=== PATIENT | female | born 1930 | race Caucasian/White ===

== ENCOUNTER 2017-07-31 13:59 | Inpatient (IN) | payer MEDICARE ==
[~2017-07-31] VITALS: Ht 172.7 cm; Wt 77.1 kg
--- NOTE | 2017-07-31 13:59 | NUR ---
FROM [facility] SENT BY DR TRAN FOR EVALUATION OF POSSIBLE UTI
--- NOTE | 2017-07-31 14:20 | NUR ---
DR ZARAGOZA AT BEDSIDE FOR EVAL
[2017-07-31 14:49] LABS: BASOPHILS # (AUTO) 0.7 /CMM (0.0-0.2); BASOPHILS % (AUTO) 4.7 % (0.0-2.0); EOSINOPHILS # (AUTO) 0.2 /CMM (0.0-0.7); EOSINOPHILS % (AUTO) 1.7 % (0.0-6.0); HEMATOCRIT 39 % (33-45); HEMOGLOBIN 12.7 g/dL (11.5-14.8); LYMPHOCYTES # (AUTO) 1.8 /CMM (0.8-4.8); LYMPHOCYTES % (AUTO) 12.8 % (20.0-44.0); MEAN CORPUSCULAR HEMOGLOBIN 31 PG (26.0-33.0); MEAN CORPUSCULAR HGB CONC 32 g/dl (31.0-36.0); MEAN CORPUSCULAR VOLUME 96 fL (82-100); MONOCYTES # (AUTO) 1.3 /CMM (0.1-1.30); MONOCYTES % (AUTO) 8.9 % (2.0-12.0); NEUTROPHILS # (AUTO) 10.4 /CMM (1.8-8.9); NEUTROPHILS % (AUTO) 71.9 % (43.0-81.0); PLATELET COUNT (AUTO) 482 /CMM (150-450); RDW COEFFICIENT OF VARIATION 15.8 (11.5-15.0); RED BLOOD CELL COUNT(AUTO) 4.09 MIL/uL (4.0-5.2); WHITE BLOOD COUNT (AUTO) 14.4 K/uL (4.3-11.0)
--- NOTE | 2017-07-31 14:56 | NUR ---
[facility] RN AT BEDSIDE FOR EVAL
[2017-07-31 14:59] LABS: APPEARANCE,URINE Cloudy (CLEAR); BILIRUBIN,URINE Negative (NEGATIVE); BLOOD, URINE Moderate Ery/uL (NEGATIVE); COLOR,URINE Yellow (YELLOW); KETONES,URINE Negative (NEGATIVE); LEUKOCYTE ESTERASE ,URINE Large (NEGATIVE); NITRITE, URINE Negative (NEGATIVE); PH,URINE 5.5 (5.0-8.0); PROTEIN,URINE >=300 mg/dl (NEGATIVE); UGLUCOSE 500 MG/DL mg/dL (NEGATIVE); UROBILINOGEN,URINE 0.2 EU/dL (0.2)
[2017-07-31 14:59] LABS: CALCIUM, SERUM 8.4 mg/dL (8.5-10.1); CARBON DIOXIDE 22 mmol/L (21-32); CHLORIDE 105 mmol/L (98-107); CREATININE 1.7 mg/dL (0.6-1.3); GLUCOSE 333 mg/dL (74-106); POTASSIUM 4.3 mmol/L (3.5-5.1); SODIUM SERUM 138 mmol/L (136-145); UREA NITROGEN, BLOOD 35 mg/dL (7-18)
--- NOTE | 2017-07-31 15:00 | NUR ---
URINE SAMPLE COLLECTED SENT TO LAB
[2017-07-31 15:03] LABS: BACTERIA,URINE 2+ /HPF (None Seen); SQUAMOUS EPITHELIAL CELL,UR Moderate /HPF (None Seen); URINE AMORPHOUS URATE Moderate /HPF (None Seen); WBC,URINE 21-50 /HPF (0-3)
[2017-07-31 15:04] LABS: ALANINE AMINOTRANSFERASE 22 U/L (12-78); ALBUMIN 2.8 g/dL (3.4-5.0); ALKALINE PHOSPHATASE 129 U/L (46-116); ASPARTATE AMINOTRANSFERASE 12 U/L (15-37); BILIRUBIN,DIRECT 0.1 mg/dL (0.0-0.2); BILIRUBIN,TOTAL 0.3 mg/dL (0.2-1.0); LIPASE 242 U/L (73-393); TOTAL PROTEIN, SERUM 8.4 g/dL (6.4-8.2)
[2017-07-31 15:10] LABS: INR 1.17 (0.87-1.13); PROTHROMBIN TIME 12.3 SECS (9.5-12.7)
--- NOTE | 2017-07-31 17:03 | NUR ---
GAVE REPORT TO VICKIE BARON [facility] 205 DR TRAN ADMITTING UTI DX
[2017-07-31] MEDS ORDERED: LEVO150T8 PO (17:04)
[2017-07-31] MEDS ORDERED: CETI-232 PO (17:04)
[2017-07-31] MEDS ORDERED: MEGE400O PO (17:04)
[2017-07-31] MEDS ORDERED: METO50TA3 PO (17:04)
[2017-07-31] MEDS ORDERED: MONT10TA22 PO (17:04)
[2017-07-31] MEDS ORDERED: NATE120T6 PO (17:04)
[2017-07-31] MEDS ORDERED: GLIP10TA11 PO (17:04)
[2017-07-31] MEDS ORDERED: FAMO20TA8 PO (17:04)
[2017-07-31] MEDS ORDERED: DILT120C2 PO (17:04)
[2017-07-31] MEDS ORDERED: ATOR20TA PO (17:04)
[2017-07-31] MEDS ORDERED: GABA-534 PO (17:04)
[2017-07-31] MEDS ORDERED: DOCU100T2 PO (17:04)
[2017-07-31] MEDS ORDERED: DABI75CA3 PO (17:04)
[2017-07-31] MEDS ORDERED: FERR-58 PO (17:04)
[2017-07-31] MEDS ORDERED: MULT-213 PO (17:04)
[2017-07-31] MEDS ORDERED: FOLI1TAB16 PO (17:04)
[2017-07-31] MEDS ORDERED: GLIP5TAB13 PO (17:04)
[2017-07-31] MEDS ORDERED: ALPR0.255 PO (17:04)
[2017-07-31] MEDS ORDERED: SERT50TA PO (17:04)
[2017-07-31] MEDS ORDERED: DIAZ5TAB4 PO (17:04)
--- NOTE | 2017-07-31 17:50 | NUR ---
RN NOTES RECEIVED PT FROM ER. PT IS IN BED, AWAKE, RESTING COMFORTABLY. PT ON RA, RESPIRATIONS ARE EVEN AND UNLABORED. IV ON RAC, INTACT AND PATENT, RUNNING NS @ 75ML/HR. SAFETY MEASURES ARE IN PLACE, CALL LIGHT IS IN REACH. WILL CONTINUE TO MONITOR.
[2017-07-31 17:55] VITALS: BP 99/67
[2017-07-31 18:45] VITALS: BP 99/67
--- NOTE | 2017-07-31 19:08 | NUR ---
RN NOTES PT IS IN BED, EATING DINNER. ON RA, RESPIRATIONS ARE EVEN AND UNLABORED. WOUND PICTURES TAKEN. IV FLUIDS RUNNING FROM IV ON RAC. SAFETY MEASURES ARE IN PLACE, CALL LIGHT IS IN REACH. WILL ENDORSE TO POLISHING MACHINE OPERATOR HELPER RN FOR CONTINUITY OF CARE.
--- NOTE | 2017-07-31 19:30 | NUR ---
MS RN NOTES RECEIVED ON BED A/O X1-2,WITH EPISODE OF CONFUSION,BREATHING REGULAR,NOT IN ANY FORM OF DISTRESS.PRESENT IVF INFUSING WELL ON RIGHT AC AT 75ML/HR RATE VIA IV PUMP,SITE PATENT.FALL RISK PRECAUTION OBSERVED,BED ON LOWEST POSITION AND LOCKED.CALL LIGHT IN REACH,NEEDS ANTICIPATED.
[2017-07-31 20:00] VITALS: BP 119/79
[2017-07-31 20:07] VITALS: BP 119/79
--- NOTE | 2017-07-31 22:00 | NUR ---
MS RN NOTES ACCU-CHECK BLOOD SUGAR CHECK 246,COVERED WITH HUMULIN R 4 UNITS PER SLIDING SCALE.
--- NOTE | 2017-07-31 22:00 | NUR ---
MS RN NOTES DUE VALIUM 5MG HELD.PATIENT CALM AND QUIET.
--- NOTE | 2017-07-31 23:15 | NUR ---
MS RN NOTES IV SITE RIGHT AC INFILTRATED.NEW IV ACCESS PLACE ON RIGHT FOREARM#22,SAME IVF INFUSING AT THIS TIME.
--- NOTE | 2017-07-31 23:30 | NUR ---
MS RN NOTES PATIENT TRANSFERRED TO ISO FLEX BED FOR SKIN CARE MANAGEMENT
--- NOTE | 2017-08-01 | NUR ---
MS RN NOTES DUE ZOSYN 2.25GM IVPB HUNG
--- NOTE | 2017-08-01 05:30 | NUR ---
MS RN NOTES ACCU-CHECK BLOOD SUGAR CHECK 118,NO INSULIN COVERAGE.
--- NOTE | 2017-08-01 06:12 | NUR ---
MS RN NOTES NO SIGNIFICANT CHANGE IN STATUS.SLEPT WELL.IV ABX TOLERATED WELL.IVF IN PROGRESS,IN NO ACUTE DISTRESS.WILL ENDORSE TO DAY NURSE FOR PEDRO LUIS
[2017-08-01 06:42] LABS: BASOPHILS % (AUTO) 0.4 % (0.0-2.0); EOSINOPHILS # (AUTO) 0.2 /CMM (0.0-0.7); HEMATOCRIT 38 % (33-45); HEMOGLOBIN 12.4 g/dL (11.5-14.8); LYMPHOCYTES % (AUTO) 19.7 % (20.0-44.0); MEAN CORPUSCULAR HEMOGLOBIN 31 PG (26.0-33.0); MEAN CORPUSCULAR HGB CONC 33 g/dl (31.0-36.0); MEAN CORPUSCULAR VOLUME 96 fL (82-100); MONOCYTES # (AUTO) 0.9 /CMM (0.1-1.30); MONOCYTES % (AUTO) 8.2 % (2.0-12.0); NEUTROPHILS # (AUTO) 7.2 /CMM (1.8-8.9); NEUTROPHILS % (AUTO) 69.7 % (43.0-81.0); PLATELET COUNT (AUTO) 415 /CMM (150-450); RDW COEFFICIENT OF VARIATION 16.1 (11.5-15.0); RED BLOOD CELL COUNT(AUTO) 3.93 MIL/uL (4.0-5.2); WHITE BLOOD COUNT (AUTO) 10.4 K/uL (4.3-11.0)
[2017-08-01 06:51] LABS: CALCIUM, SERUM 8.4 mg/dL (8.5-10.1); CARBON DIOXIDE 20 mmol/L (21-32); CHLORIDE 112 mmol/L (98-107); CREATININE 1.5 mg/dL (0.6-1.3); GLUCOSE 133 mg/dL (74-106); MAGNESIUM 1.7 mg/dL (1.8-2.4); PHOSPHORUS 3.1 mg/dL (2.5-4.9); POTASSIUM 3.9 mmol/L (3.5-5.1); SODIUM SERUM 144 mmol/L (136-145); UREA NITROGEN, BLOOD 31 mg/dL (7-18)
--- NOTE | 2017-08-01 07:15 | NUR ---
RN NOTES PT IS IN BED, SLEEPING COMFORTABLY. PT ON RA, RESPIRATIONS ARE EVEN AND UNLABORED. IV ON RFA INTACT AND PATENT RUNNING NS @ 75 ML/HR. SAFETY MEASURES ARE IN PLACE, CALL LIGHT IS IN REACH. WILL CONTINUE TO MONITOR.
--- NOTE | 2017-08-01 08:00 | NUR ---
RN NOTES PT IS REFUSING TO HAVE VITAL SIGNS CHECKED. EXPLAINED TO THE PT THAT WE NEEDED TO CHECK HER BLOOD PRESSURE BECAUSE SHE HAS BP MEDICATIONS DUE. PT STATES SHE UNDERSTANDS AND STILL REFUSES.
--- NOTE | 2017-08-01 08:30 | NUR ---
WOUND CARE CONSULT: PT ADAMANTLY REFUSED SKIN ASSESSMENT. PHOTO DOCUMENTATION SHOWS SACRAL ULCER. PT ON NAA ISOFLEX LOW AIRLOSS BED. ALL SKIN PROTECTION MEASURES DISCUSSED WITH NURSING STAFF. WOUND CARE RECOMMENDATIONS MADE BASED ON PHOTO DOCUMENTATION. SURGICAL CONSULT MAY BE INDICATED. WILL SEE PT PT CONDITION PERMITS. MD IN AGREEMENT WITH PLAN OF CARE.
--- NOTE | 2017-08-01 12:32 | NUR ---
WOUND CARE CONSULT: PT ALLOWED SKIN ASSESSMENT. PT NOTED TO HAVE UNSTAGEABLE ULCER TO SACRUM, PRESENT ON ADMISSION. RECOMMENDATIONS FOR WOUND CARE DISCUSSED WITH NURSING STAFF. RECOMMEND SURGICAL CONSULT. PT ON NAA ISOFLEX LOW AIRLOSS BED. WILL SEE PRN. HILL IN AGREEMENT WITH PLAN OF CARE. Addendum: 08/01/17 at 1233 by KERVIN BRIGHT WNDNU Amended: Links added.
[2017-08-01 16:00] VITALS: BP 118/79
--- NOTE | 2017-08-01 19:08 | NUR ---
RN NOTES PT IS SITTING UP IN BED, RESTING COMFORTABLY. PT ON RA, RESPIRATIONS ARE EVEN AND UNLABORED. IV ON RIGHT WRIST INTACT AND PATENT, RUNNING NS @ 75ML/HR. SKIN CARE AND WOUND CARE WERE PROVIDED. PHYSICAL THERAPY SAW PT AND SHE WAS ABLE TO STAND. ALL NEEDS WERE MET. SAFETY MEASURES ARE IN PLACE, CALL LIGHT IS IN REACH. WILL ENDORSE TO PRINTING SUPERVISOR RN FOR CONTINUITY OF CARE.
[2017-08-01 20:00] VITALS: BP 119/71
[2017-08-02 06:27] LABS: BASOPHILS % (AUTO) 0.3 % (0.0-2.0); EOSINOPHILS # (AUTO) 0.3 /CMM (0.0-0.7); EOSINOPHILS % (AUTO) 2.3 % (0.0-6.0); HEMATOCRIT 34 % (33-45); HEMOGLOBIN 11.2 g/dL (11.5-14.8); LYMPHOCYTES # (AUTO) 2.5 /CMM (0.8-4.8); LYMPHOCYTES % (AUTO) 21.8 % (20.0-44.0); MEAN CORPUSCULAR HEMOGLOBIN 32 PG (26.0-33.0); MEAN CORPUSCULAR HGB CONC 33 g/dl (31.0-36.0); MEAN CORPUSCULAR VOLUME 96 fL (82-100); MONOCYTES # (AUTO) 0.9 /CMM (0.1-1.30); MONOCYTES % (AUTO) 7.8 % (2.0-12.0); NEUTROPHILS # (AUTO) 7.9 /CMM (1.8-8.9); NEUTROPHILS % (AUTO) 67.8 % (43.0-81.0); PLATELET COUNT (AUTO) 379 /CMM (150-450); RDW COEFFICIENT OF VARIATION 16.1 (11.5-15.0); RED BLOOD CELL COUNT(AUTO) 3.52 MIL/uL (4.0-5.2); WHITE BLOOD COUNT (AUTO) 11.7 K/uL (4.3-11.0)
--- NOTE | 2017-08-02 06:28 | NUR ---
MS RN NOTES AWAKE & RESPONSIVE. NOT IN ANY DISTRESS. NO SOB NOTED. DENIES ANY PAIN OR DISCOMFORT AT THIS TIME. WITH IVF INFUSING WELL. AM CARE DONE. MONITORED ACCORDINGLY. CALL LIGHT WITHIN REACH. BED IN LOWEST POSITION. SR UP X 3 WITH BED ALARM ON FOR SAFETY. WILL ENDORSE TO NEXT SHIFT.
[2017-08-02 06:39] LABS: CARBON DIOXIDE 19 mmol/L (21-32); CHLORIDE 113 mmol/L (98-107); CREATININE 1.4 mg/dL (0.6-1.3); GLUCOSE 142 mg/dL (74-106); MAGNESIUM 1.9 mg/dL (1.8-2.4); POTASSIUM 3.5 mmol/L (3.5-5.1); SODIUM SERUM 144 mmol/L (136-145); UREA NITROGEN, BLOOD 27 mg/dL (7-18)
--- NOTE | 2017-08-02 07:05 | NUR ---
RN NOTES REPORT RECEIVED AT THE BEDSIDE. PATIENT RESTING COMFORTABLY IN BED. NO SOB OR DISTRESS NOTED AT THIS TIME. PATIENT DENIES PAIN AT THIS TIME AND STATES "I AM HUNGRY." IV FLUIDS INFUSING WELL. BED IN A LOW POSITION, CALL LIGHT WITHIN PATIENT REACH, WILL CONTINUE TO MONITOR.
[2017-08-02 08:00] VITALS: BP 127/92
[2017-08-02 16:00] VITALS: BP 123/72
--- NOTE | 2017-08-02 18:58 | NUR ---
RN CLOSING NOTES NO SIGNIFICANT CHANGES IN PATIENT CONDITION THROUGHOUT THE SHIFT. NO SOB OR DISTRESS NOTED AT THIS TIME. PATIENT DENIES PAIN. BED IN A LOW POSITION, CALL LIGHT WITHIN PATIENT REACH, FAMILY AT THE BEDSIDE. WILL ENDORSE FOR PEDRO LUIS.
[2017-08-02 20:00] VITALS: BP 120/63
--- NOTE | 2017-08-03 06:48 | NUR ---
MS RN NOTES AWAKE & RESPONSIVE. NOT IN ANY DISTRESS. NO SOB NOTED. DENIES ANY PAIN OR DISCOMFORT AT THIS TIME. WITH IV-HL PATENT & INTACT. AM CARE DONE. MONITORED ACCORDINGLY. CALL LIGHT WITHIN REACH. BED IN LOWEST POSITION. SR UP X 3 WITH BED ALARM ON FOR SAFETY. WILL ENDORSE TO NEXT SHIFT.
--- NOTE | 2017-08-03 08:00 | NUR ---
MS RN OPENING NOTES PATIENT IS AWAKE. NOT IN ANY APPARENT DISTRESS. NO SOB. IV ON RIGHT FOREARM SALINE LOCK. BEDSIDE RAILS ARE UP X2. BED IS LOCKED AND LOWERED. WILL CONTINUE TO MONITOR.
[2017-08-03 16:00] VITALS: BP 110/60
--- NOTE | 2017-08-03 19:23 | NUR ---
MS RN CLOSING NOTES PATIENT IS RESTING IN BED IN NO APPARENT DISTRESS. BEDSIDE RAILS ARE UP X2. BED IS LOCKED AND LOWERED. WILL ENDORSE CARE TO DIRECTOR MERIT SYSTEM NURSE FOR PEDRO LUIS.
--- NOTE | 2017-08-03 19:30 | NUR ---
MSRN FULLY AWAKE,CONFUSED. COOPERATIVE. SAFETY PRECAUTIONARY MEASURES OBSERVED, NEEDS CONSTANT MONITORING. REPOSITIONED PER PATIENT COMFORT. NO NEEDS FOR NOW.
[2017-08-03 20:00] VITALS: BP 115/79
--- NOTE | 2017-08-03 21:55 | NUR ---
RN NOTES: PT'S BLOOD SUGAR CHECKED AT 186 MG/DL. ADMINISTERED 3 UNITS REGULAR INSULIN PER SCALE SQ. GAVE LIGHT SNACK TO PATIENT.
--- NOTE | 2017-08-04 06:46 | NUR ---
RN NOTES: PATIENT'S BLOOD SUGAR CHECKED AT 105 MG/DL. NO INSULIN COVERAGE NEEDED AT THIS TIME.
--- NOTE | 2017-08-04 07:30 | NUR ---
RN MS NOTES PT IN BED, AWAKE, ALERT, VERBALLY RESPONSIVE, WITH CONFUSION, NO COMPLAINT OF PAIN, NOT IN DISTRESS, CALL LIGHT WITHIN REACH, KEPT COMFORTABLE IN BED.
[2017-08-04 08:00] VITALS: BP 121/71
--- NOTE | 2017-08-04 11:30 | NUR ---
RN MS NOTES PT IN BED, AWAKE, ALERT, WATCHING TV, VERBALLY RESPONSIVE, NO COMPLAINT OF PAIN, BREATHING PATTERN NORMAL, CALL LIGHT WITHIN REACH, ASSISTED WITH MEALS, KEPT COMFORTABLE.
--- NOTE | 2017-08-04 15:06 | NUR ---
RN MS NOTES PT IN BED, AWAKE, ALERT TO SELF, WITH CONFUSION, VERBALLY RESPONSIVE, DENIES PAIN, NOT IN DISTRESS, SEEN BY DR. TRAN.
[2017-08-04 16:00] VITALS: BP 111/74
--- NOTE | 2017-08-04 18:30 | NUR ---
RN MS NOTES PT SITTING IN HER CHAIR, NO COMPLAINT OF PAIN OR ANY DISCOMFORT, ASSISTED WITH DINNER, TOLERATING CURRENT DIET WELL, NOTED WITH GOOD PO INTAKE, ASSISTED BACK TO BED AFTER DINNER, PM CARE DONE, PM MEDS GIVEN ORDERED, WHEN ASKED IF SHE WOULD LIKE TO HAVE THE SACRAL WOUND DEBRIDENT, EXPLAINED PROCEDURE TO PT WELL RISKS AND BENEFITS, PT STATED "NO, WHY WOULD I HAVE IT? EXPLAINED TO PT SEVERAL TIMES, STILL REFUSED, KEPT COMFORTABLE IN BED, CALL LIGHT WITHIN REACH, ALL NEEDS ATTENDED.
--- NOTE | 2017-08-04 19:30 | NUR ---
MS RN NOTES RECEIVED ON BED A/O X1-2,BREATHING REGULAR,NOT IN ANY FORM DISTRESS,SACRAL WOUND WITH MEPILEX IN PLACE.SALINE LOCK RFA INTACT AND PATENT.ABDOMEN DISTENDED BUT SOFT.DENIES PAIN.WILL CONTINUE TO MONITOR STATUS.
[2017-08-04 20:00] VITALS: BP 108/57
--- NOTE | 2017-08-04 21:19 | NUR ---
RN NOTES: PATIENT'S BLOOD SUGAR CHECKED AT 140 MG/DL, ADMINISTERED 2 UNITS REGULAR INSULIN PER SCALE. GAVE LIGHT SNACK WELL.
--- NOTE | 2017-08-04 21:30 | NUR ---
MS RN NOTES ACCU-CHECK BLOOD SUGAR CHECK 140,COVERED WITH HUMULIN R 2 UNITS PER SLIDING SCALE.
--- NOTE | 2017-08-04 22:00 | NUR ---
MS RN NOTES VALIUM 5MG PO HELD,PATIENT SOUND ASLEEP.
--- NOTE | 2017-08-05 01:00 | NUR ---
MS RN NOTES DUE ANCEF 1GM IVPB HUNG
--- NOTE | 2017-08-05 06:15 | NUR ---
MS RN NOTES ACCU-CHECK BLOOD SUGAR CHECK 116,NO INSULIN COVERAGE
--- NOTE | 2017-08-05 06:45 | NUR ---
MS RN NOTES SACRAL WOUND APPEARS SMALLER.AWAITING DEBRIDEMENT FROM DR COOMBS IF PATIENT AGREE TO IT PER SON.IN NO ACUTE DISTRESS.
--- NOTE | 2017-08-05 07:30 | NUR ---
MS/RN Patient received Patient received from shift commander. Sleeping, appears in no distress. Bed in low setting, brakes locked, side rails X3 in upright position. Call light within reach. Will continue to monitor and ensure safety.
[2017-08-05 08:00] VITALS: BP 117/70
--- NOTE | 2017-08-05 09:00 | NUR ---
MS/RN Medications Morning medications administered as ordered, no difficulty swallowing.
--- NOTE | 2017-08-05 10:25 | NUR ---
MS/RN Dressing Dressing to sacrum changes, redressed with hydrogel and mepilex.
--- NOTE | 2017-08-05 11:30 | NUR ---
MS/RN Out of bed Patient out of bed to bedside commode. Large BM.
--- NOTE | 2017-08-05 12:30 | NUR ---
MS/RN Blood sugar Blood sugar at 12p 172, per sliding scale three units regular insulin administered.
--- NOTE | 2017-08-05 13:28 | NUR ---
MS/RN S/B Dr Yip Seen by Dr Yip - to continue with current plan of care and wound treatment. If patient does not want to agree with wound debridement, will possible be discharged back to SNF tomorrow.
[2017-08-05 16:00] VITALS: BP 111/73
[2017-08-05 16:57] VITALS: BP 112/76
--- NOTE | 2017-08-05 17:00 | NUR ---
MS/RN Blood sugar Blood sugar at 5p - 160, per sliding scale, 2 units if regular insulin administered.
--- NOTE | 2017-08-05 18:28 | NUR ---
MS/RN End note No changes in plan of care. All needs attended, will continue to monitor and endorse to professor of communication arts.
--- NOTE | 2017-08-05 19:50 | NUR ---
RN INITIAL NOTES: RECEIVED PT IN BED STILL EATING HER DINNER, PT AWAKE, A/O X1-2, GARBLED SPEECH NOTED, PLEASANT PT, ON RA RESPIRATION EVEN AND UNLABORED, NO FACIAL GRIMACE NOTED, RFA IV ACCESS PATENT AND FLUSHING WELL, ON HL. BLE OFFLOADED, SAFETY PRECAUTIONS FOR FALL INITIATED CALL LIGHT IN REACH, WILL CONTINUE TO MONITOR
[2017-08-05 20:00] VITALS: BP 108/68
--- NOTE | 2017-08-05 21:45 | NUR ---
RN NOTES: BLOOD SUGAR CHECKED AT 238 MG/DL, ADMINISTERED 4 UNITS REGULAR INSULIN PER SCALE SQ. GAVE LIGHT SNACK. WILL CONT TO MONITOR.
--- NOTE | 2017-08-05 22:00 | NUR ---
RN NOTES: INFORM PT REGARDING SACRAL DEBRIDEMENT, PT STATED "I AM NOT SURE IF I WANT IT, MAYBE I WILL AGREE BUT MOST LIKELY I WILL NOT" PT VERBALIZED, PER REPORT SON AGREE WITH THE DEBRIDEMENT BUT HE ANTS HE'S MOTHER TO MAKE THE DECISION FOR DEBRIDEMENT PT STILL A/O AND MAKE DECISION FOR HERSELF
--- NOTE | 2017-08-05 22:20 | NUR ---
NON ADMINISTRATION OF VALIUM: PT ASLEEP, VALIUM NOT ADMINISTERED AT THIS TIME, APPEARS CALM AND COMFORTABLE
--- NOTE | 2017-08-06 00:30 | NUR ---
RN NOTES S/B DR COOMBS: DR COOMBS CAME TO THE UNIT ASKING IF CONSENT WAS OBTAINED FOR SACRAL DEBRIDEMENT, INFORMED MD THAT PT IS REFUSING ALTHOUGH PER REPORT FROM DAY RN PT'S SON AGREE FOR THE DEBRIDEMENT BUT WILL LET THE PT/HIS MOTHER DECIDE IF WILLING TO HAVE THE DEBRIDEMENT OR NOT.
--- NOTE | 2017-08-06 04:12 | NUR ---
OBTAINING CONSENT FOR SACRAL WOUND DEBRIDEMENT: AFTER THOROUGH DISCUSSION WITH THE PT, (INCLUDING RISK BENEFITS AND IMPORTANCE) REGARDING THE NEED FOR SACRAL WOUND DEBRIDEMENT, PT FINALLY AGREE TO DO THE PROCEDURE. PT IS A/O X2, AND AWARE OF WHAT'S GOING ON AND PLAN OF CARE. SHOWED TO THE PT THE PICTURE OF HER SACRAL WOUND AND EXPLAINED WHY THERE'S A NEED FOR DEBRIDEMENT. SHE STATED THAT THE REASON WHY SHE INITIALLY DECLINED/REFUSED WAS BECAUSE SHE THOUGHT IT'S ONLY A SMALL WOUND AND CAN BE TAKEN CARE OF AT HOME. AFTER SHOWING THE PICTURE, THE PT REALIZED HOW BAD THE WOUND IS, AND DECIDED TO GIVE HER FULL CONSENT FOR THE DEBRIDEMENT. I PERSONALLY DISCUSSED IT WITH THE PT FOR 45MINS (STARTED AT 0330 AND FINISHED BY [id number]). I HAVE TOD LEE AND MILEY VILLANUEVA AT BED SIDE FOR WITNESS. CONSENT OBTAINED AND ATTACHED TO CHART
--- NOTE | 2017-08-06 06:24 | NUR ---
accu check: blood sugar check and reveal 117, no insulin coverage per sliding scale, pt ccho diet, tolerating po intake well. will monitor for any s/s of hypoglycemia
--- NOTE | 2017-08-06 07:11 | NUR ---
RN CLOSING NOTES: PT IN BED, AWAKE, REMAINS A/O X2, ON RA RESPIRATION EVEN AND UNLABORED, APPEARS CALM AND COMFORTABLE, NO FACIAL GRIMACE NOTED. IV ACCESS REMAINS PATENT AND FLUSHING WELL, ON HL. CONSENT OBTAINED, ATTACHED TO CHART, WILL MAKE DR COOMBS AWARE, VS REMAINS STABLE, NEEDS ATTENDED, SAFETY PRECAUTIONS FOR FALL REMAINS ENGAGED, CALL LIGHT IN REACH, WILL ENDORSE TO DAY RN FOR PEDRO LUIS.
--- NOTE | 2017-08-06 07:15 | NUR ---
ms rn initial notes Received patient in bed, asleep, head of bed elevated, no SOB or distress noted. on room air and tolerated well. Alert and oriented x 3, verbally responsive and able to make needs known. IV intact and patent. Kept patient clean and comfortable in bed, call light with in patient reach, will continue to monitor accordingly.
[2017-08-06 08:00] VITALS: BP 140/82
[2017-08-06 16:00] VITALS: BP 112/67
--- NOTE | 2017-08-06 19:29 | NUR ---
ms rn closing notes All needs provided, attended, and anticipated. Endorsed to next shift RN to continue care.
--- NOTE | 2017-08-06 19:40 | NUR ---
MS RN NOTE: PATIENT RESTING IN BED, NO ACUTE DISTRESS NOTED. BREATHING EVEN AND UNLABORED, NO SOB NOTED. IV TO RFA IN PLACE. PATIENT TO HAVE SACRAL DEBRIDEMENT TONIGHT AT BEDSIDE. BED LOCKED AND IN LOWEST POSITION, CALL LIGHT IN REACH, WILL CONTINUE TO MONITOR.
[2017-08-06 20:00] VITALS: BP 122/73
--- NOTE | 2017-08-06 20:30 | NUR ---
MS RN NOTE: PATIENT S/P SACRAL DEBRIDEMENT AT BEDSIDE. PATIENT TOLERATED TREATMENT, WILL CONTINUE TO MONITOR.
--- NOTE | 2017-08-06 22:15 | NUR ---
MS RN NOTE: PATIENT BLOOD SUGAR LEVEL 325MG/DL, PATIENT TO RECEIVE 8 UNITS OF INSULIN PER SLIDING SCALE. NO S/S OF HYPERGLYCEMIA NOTED, WILL CONTINUE TO MONITOR.
--- NOTE | 2017-08-07 06:10 | NUR ---
MS RN NOTE: PATIENT RESTING IN BED, NO ACUTE DISTRESS NOTED. BREATHING EVEN AND UNLABORED, NO SOB NOTED. IV TO RFA IN PLACE. SACRAL DRESSING IN PLACE. PATIENT BLOOD SUGAR LEVEL 108 MG/DL, NO INSULIN NEEDED PER SLIDING SCALE. NO S/S OF HYPOGLYCEMIA NOTED. BED LOCKED AND IN LOWEST POSITION, CALL LIGHT IN REACH, WILL ENDORSE TO DAY NURSE TO CONTINUE WITH PLAN OF CARE.
--- NOTE | 2017-08-07 07:10 | NUR ---
ms rn initial notes Received patient in bed, asleep head of bed elevated, no SOB or distress noted on room air and tolerated well. Alert and oriented x 2. Verbally responsive. No facial grimace noted. Kept patient clean and comfortable in bed, call light with in patient reach, will continue to monitor accordingly.
[2017-08-07 08:00] VITALS: BP_SYST 127; BP_SYST 131; BP_DIAS 72; BP_DIAS 77
[2017-08-07 16:00] VITALS: BP 121/70
[2017-08-07 16:44] VITALS: BP 121/70
--- NOTE | 2017-08-07 17:53 | NUR ---
ms insurance attorney notes Discharge instructions given to [facility] director and able to understand instructions. IV discontinued and pressured applied to prevent bleeding. [facility] Madelaine and report given. Patient is alert and oriented x 2, confused. No SOB or distress noted. No complaint of pain or discomfort. Med response came to order picker the patient. Skin assessment done and picture taken and filed in the chart. refused pneumonia and flu vaccine. Vital signs checked and recorded. Patient left in stable condition. MD and charge nurse aware.
== END 2017-08-07 17:52 | DRG 853 ==
LOC: ER 14:10 → MEDSG2 17:29
PROVIDERS: ADMIT Legal Medicine; ATTEND Legal Medicine
PROC: 0JB70ZZ Excision of Back Subcutaneous Tissue and Fascia, Open Approach (ICD-10-PCS; principal; 2017-08-06)
DX: A41.9 Sepsis, unspecified organism (principal); G93.40 Encephalopathy, unspecified; N17.9 Acute kidney failure, unspecified; L89.153 Pressure ulcer of sacral region, stage 3; D68.9 Coagulation defect, unspecified; E11.22 Type 2 diabetes mellitus with diabetic chronic kidney disease; E88.09 Other disorders of plasma-protein metabolism, not elsewhere classified; F03.90 Unspecified dementia, unspecified severity, without behavioral disturbance, psychotic disturbance, mood disturbance, and anxiety; N39.0 Urinary tract infection, site not specified; E83.51 Hypocalcemia; I48.91 Unspecified atrial fibrillation; N18.9 Chronic kidney disease, unspecified; I12.9 Hypertensive chronic kidney disease with stage 1 through stage 4 chronic kidney disease, or unspecified chronic kidney disease; D64.9 Anemia, unspecified; I25.10 Atherosclerotic heart disease of native coronary artery without angina pectoris; E89.0 Postprocedural hypothyroidism; B96.4 Proteus (mirabilis) (morganii) as the cause of diseases classified elsewhere
CPT/HCPCS: 36415; 70450-TC; 71010-TC; 80048-TC; 80076-TC; 81000-TC; 82962-TC; 83690-TC; 83735-TC; 84100-TC; 84443-TC; 85025-TC; 85730-TC; 87081-TC; 87086-TC; 87186-TC; A4217; A4606; A6248; A6253; A6402; J0690; J1815; J2543; J3475; J3490; J7030; J7040; J7050; J7060; Z7610